=== PATIENT | male | born 1955 | race Caucasian/White ===

== ENCOUNTER → 2021-12-18 | Day surgery (SDC) | payer MEDICARE, BC ==
[~2021-12-18] MED LIST: IPRATRPIUM/ALBUTEROL 0.5/2.5MG 3 ML NEBU. NEB PRN; IV RINGERS SOLUTION,LACTATED 1,000 ML IV SCH; KETAMINE HCL IN NACL, ISO-OSM 50 MG/5 ML SYRINGE ONE; MIDAZOLAM HCL PF 2 MG/2 ML VIAL. IV ONE; ONDANSETRON PF 4 MG/2 ML VIAL. IV PRN
[2021-12-18 12:57] VITALS: BP 132/93
--- NOTE | 2021-12-21 16:08 | PATHOLOGY ---
[facility] Accession Number: [id number] . 01 Material submitted: . colon - DESCENDING COLON POLYP BIOPSY. Modifiers: descending . 01 Clinical history: . HX OF POLYPS COLONOSCOPY . 02 Diagnosis: Colon biopsies, descending colon polyp: - Tubular adenoma. (JPM:tony; 12/21/2021) QMS 12/21/2021 1156 Local . 02 Comment: There is no high grade dysplasia or evidence of malignancy. (JPM:tony; 12/21/2021) . 02 Electronically signed: . Escobar Davis MD, Pathologist NPI- [id number] . 01 Gross description: . Received in formalin labeled "Med Mcginnis, descending colon polyp biopsy" are 2 fragments of dasilva-brown soft tissue measuring 0.4 x 0.4 x 0.3 cm and 0.3 x 0.3 x 0.2 cm. The specimen is submitted entirely in A1. ([facility]; 12/19/2021) GZA/GZA 12/19/2021 1317 Local . 02 Pathologist provided ICD-10: D12.4 . 02 CPT . 611484 Specimen Comment: A courtesy copy of this report has been sent to [phone], [phone] Specimen Comment: [id number] Specimen Comment: Report sent to / DR CADENA Specimen Comment: A duplicate report has been generated due to demographic updates. Performed at: 01 [facility] [address], [place] [id number] MD Melvin Longoria MD Phone: [phone] Performed at: 02 [facility] [address], [place] [id number] MD Escobar Davis MD Phone: [phone]
== END | disposition home or self-care (01) ==
LOC: SURG 09:52
PROVIDERS: ATTEND Internal Medicine Gastroenterology
DX: Z12.11 Encounter for screening for malignant neoplasm of colon (principal); D12.4 Benign neoplasm of descending colon; K64.1 Second degree hemorrhoids; J44.9 Chronic obstructive pulmonary disease, unspecified; M19.90 Unspecified osteoarthritis, unspecified site; E78.00 Pure hypercholesterolemia, unspecified; Z72.89 Other problems related to lifestyle; Z86.010 Personal history of colon polyps
CPT/HCPCS: 45380; J7120